=== PATIENT | male | born 1990 | race Caucasian/White ===

== ENCOUNTER 2023-09-11 14:13 | Emergency (ER) | payer OTHER, SELFPAY ==
[2023-09-11 14:19] VITALS: BP 145/90; PULSE 90; RESP 18; TEMP 37; O2SAT 96; BMI 23.2
[2023-09-11 14:23] VITALS: RESP 18; O2SAT 96
--- NOTE | 2023-09-11 14:57 | XR_ITS ---
[address] [address] Patient Name: CATRACHITA SULTANA MRN: [facility]:[id number] date: 1990 Sex: M Assigned Patient Location: ER Current Patient Location: ER Accession/Order Number: [id number] Exam Date: 09/11/2023 13:05 Report Date: 09/11/2023 15:20 At the request of: HELENA NEGRON Procedure: XR chest 1V EXAMINATION: XR chest 1V HISTORY: Shortness of breath COMPARISON: Chest x-ray 01/26/2023 TECHNIQUE: Portable chest FINDINGS: The lung parenchyma is free of consolidation or infiltrate. No pneumothorax or pleural effusion. The cardiac, mediastinal and hilar contours are normal. The visualized osseous structures exhibit no gross abnormality. XR/XR chest 1V IMPRESSION: No acute cardiopulmonary abnormality. Electronically authenticated by: DEVON BAIG Date: 09/11/2023 15:20
[2023-09-11] MEDS: PREDNISONE 20 MG TABLET 40 MG PO (15:08)
[2023-09-11] MEDS: IPRATROPIUM/ALBUTEROL SULFATE 3 ML AMPUL.NEB IH (15:18)
[2023-09-11 15:19] VITALS: O2SAT 100
--- NOTE | 2023-09-11 15:36 | ED_ITS ---
HPI - General Adult General Chief complaint: Upper Respiratory Infection Stated complaint: URTI Time Seen by Provider: 09/11/23 14:54 Source: patient Mode of arrival: walk-in Limitations: no limitations History of Present Illness HPI narrative: Patient have history of smoking more than 1 pack of cigarettes a day is coming to us with difficulty breathing associated with cough and wheezing for the last few days The patient have no chest pain no other complaints no fever no chills Related Data Previous Rx's Medication Instructions Recorded albuterol sulfate 90 mcg/actuation 2 inh inhalation Q6H PRN shortness 09/11/23 breath activated powder inhaler of breath or wheezing #1 ea azithromycin 250 mg tablet See Rx Instructions PO .COMPLEX #6 09/11/23 (Zithromax Z-Eleno) tabs prednisone 20 mg tablet 40 mg PO DAILY 5 days #10 tabs 09/11/23 Allergies Allergy/AdvReac Type Severity Reaction Status Date / Time Penicillins Allergy Intermediate Verified 09/11/23 14:22 Review of Systems ROS Status of ROS 10 or more systems reviewed and unremarkable except as noted in history and below [facility] Social History Smoking status: Current every day smoker Exam Narrative Exam Narrative: Nurses notes and vital signs reviewed and patient is not hypoxic. General: Well-appearing and in no apparent distress. Skin: Warm, dry, no pallor noted. No rash. Head: Normocephalic, atraumatic. Neck: Supple, non-tender. Eye: Pupils are equal, round and EOMI. No scleral icterus. Ears, Nose, Mouth, and Throat: TM are clear, no nasal mucosal hypertrophy. Oral mucosa is moist, no posterior oropharynx erythema, uvula is mid-line Cardiovascular: Regular Rate and Rhythm without murmur, gallop or rub. Respiratory: No accessory muscle use or respiratory distress. Lungs bilateral expiratory lung wheezes in both lung sullivan Chest Wall: no tenderness Back: No midline thoracic or lumbar vertebral tenderness. No CVA tenderness Musculoskeletal: normal ROM, no calf or popliteal tenderness, no lower ext remity edema/swelling GI: Abdomen is soft, non-distended. Normal bowel sounds. No masses appreciated. No tenderness to palpation. No rebound, guarding, or rigidity noted. Neurological: A&O x4. No cranial nerve dysfunction observed. No truncal ataxia. Moves all extremities. Sensation intact. Psychiatric: Cooperative and interactive. Normal mood and affect. Constitutional Vital Signs, click to edit/add: Last Vital Signs Temp 98.6 F 09/11/23 14:19 Pulse 90 09/11/23 14:19 Resp 18 09/11/23 14:23 BP 145/90 H 09/11/23 14:19 Pulse Ox 100 09/11/23 15:19 O2 Del Method Room Air 09/11/23 15:19 Course Vital Signs Vital signs: Vital Signs Temperature 98.6 F 09/11/23 14:19 Pulse Rate 90 09/11/23 14:19 Respiratory Rate 18 09/11/23 14:19 Blood Pressure 145/90 H 09/11/23 14:19 Pulse Oximetry 96 09/11/23 14:19 Oxygen Delivery Method Room Air 09/11/23 14:19 Temperature 98.6 F 09/11/23 14:19 Pulse Rate 90 09/11/23 14:19 Respiratory Rate 18 09/11/23 14:23 Blood Pressure 145/90 H 09/11/23 14:19 Pulse Oximetry 100 09/11/23 15:19 Oxygen Delivery Method Room Air 09/11/23 15:19 Medical Decision Making MDM Narrative Medical decision making narrative: The patient have history of bronchitis presenting to us with a COPD exacerbation he received a breathing treatment as well as prednisone after which she was feeling better and his chest x-ray showed no acute pathology He was just discharged home with prednisone as well as Z-Eleno and albuterol with follow-up with a new primary care The patient is to follow up with primary care physician in next 2-3 days or to return to the emergency department should any of the signs or symptoms worsen or new symptoms develop. The patient agrees with the following Diagnosis and Treatment plan and the patient will be discharged home. Discharge Plan Discharge Chief Complaint: Upper Respiratory Infection Clinical Impression: COPD exacerbation Patient Disposition: Home, Self-Care Time of Disposition Decision: 15:37 Condition: Good Mode of Transportation: Private Vehicle Prescriptions / Home Meds: New prednisone 20 mg tablet 40 mg PO DAILY 5 Days Qty: 10 0RF albuterol sulfate 90 mcg/actuation aerosol powdr breath activated 2 inh inhalation Q6H PRN (Reason: shortness of breath or wheezing) Qty: 1 0RF azithromycin [Zithromax Z-Eleno] 250 mg tablet See Rx Instructions .ROUTE .COMPLEX Qty: 6 0RF Rx Instructions: For 250 mg dose pack: take 500 mg today (day 1), then 250 mg for 4 days (days 2-5) Instructions: COPD (Chronic Obstructive Pulmonary Disease) (ED) Stand Alone Forms: Portal Instructions Referrals: Physician,Non-Staff, MD [Primary Care Provider] - 1 week
[2023-09-11 15:50] VITALS: BP 161/95; PULSE 82; RESP 17; O2SAT 98
== END 2023-09-11 15:55 | disposition home or self-care (01) ==
PROVIDERS: Emergency Provider Emergency Medicine
DX: J44.1 Chronic obstructive pulmonary disease with (acute) exacerbation (principal); F17.210 Nicotine dependence, cigarettes, uncomplicated
CPT/HCPCS: 71045; 94640; 99284

== ENCOUNTER 2025-06-23 21:06 | Emergency (ER) | payer OTHER, SELFPAY ==
--- OUTSIDE RECORDS SUMMARY | 2025-06-23 21:13 | XMS_ITS | CCD ---
Author Organization [facility] Care Team Providers Care [employer] Hand Name Role Phone Vore, Grabiel W Unavailable Unavailable No Doctor Assigned, Nodr Unavailable Unavail able Vore, Grabiel W Unavailable Unavailable Vore, Grabiel W Unavailable Unavailable No Doctor Assigned, Nodr Unavailable Unavail able Vore, Grabiel W Unavailable Unavailable ACSO Unavailable Unavailable Vore, Grabiel W Unavailable Unavailable No Doctor Assigned, Nodr Unavailable Unavail able Vore, Grabiel W Unavailable Unavailable ACSO Unavailable Unavailable NO FAMILY, PHYSICIAN Primary Care Provider Unava ilable DO Moreno Orellana Emergency Provider [place], [facility]- Dasia Misael Emergency Provider 1( [phone] MARKER ., [address] HOOD Admitting Unavailable MARKER ., DR HOOD Attending Unavailable REQUEST, NONE LISTED Primary Care Unavaila ble MARKER ., DR HOOD Consulting Unavailable DIEUDONNE WAKEFIELD Consulting Unavailable REQUEST, NONE LISTED Primary Care Unavaila ble HAY ., DR COLBERT Admitting Unavailable HAY ., DR COLBERT Attending Unavailable GRECHNY ., LASHONDA ADDISON Consulting Unavailabl e OSKAR DUTTA Consulting Unavailable Darryn Cristobal Admitting Unavailable NO FAMILY, PHYSICIAN Primary Care Unavailable Darryn Cristobal Attending Unavailable NO FAMILY, PHYSICIAN Primary Care Unavailable Moreno Orellana Attending Unavailable Moreno Orellana Admitting Unavailable NO FAMILY, PHYSICIAN Primary Care Unavailable [place] Dasia Misael Attending Unavailable Bullabelardo, Dasia E Admitting Unavailable Allergies Allergy Classification Reported Allergen(s) Allergy Type Date of Onset Reaction(s) Facility (5 sources) Penicillins; Translations: [penicillins] Propensity to adverse reactions to drug (disorder) 5 Anaphylaxis [facility] Repository (1 source) Penicillin; Translations: [penicillin] Drug Allergy [facility] Repository Problems Active Problems Problem Classification Problem Date Documented Da te Episodic/Chronic E Codes: Struck by; against (1 source) Striking against or struck by other objects, initial encounter; Translations: [STRIKING AGNST/STRUCK OTH OBJ INIT] Onset: 01-19-2023 Episodic Other connective tissue disease (3 sources) Pain in right hand; Translations: [PAIN IN RIGHT HAND] Onset: 01-18-2023 Episodic Other non-traumatic joint disorders (2 sources) Shoulder pain; Translations: [Pain in unspecified shoulder] 10-26-2022 Episodic Other upper respiratory infections (2 sources) Acute upper respiratory infection, unspecified; Translations: [ACUTE UP RESPIRATORY INFECTION UNS] Onset: 01-23-2023 Episodic Substance-related disorders (1 source) Nicotine dependence, cigarettes, uncomplicated; Translations: [NICOTINE DEPEND CIGARETTES UNCOMP] Onset: 01-29-2023 Chronic Superficial injury; contusion (1 source) Contusion of right hand, initial encounter; Translations: [CONTUSION RIGHT HAND INITIAL ENC] Onset: 01-19-2023 Episodic Unclassified (3 sources) COUGH, UNSPECIFIED; Translations: [COUGH, UNSPECIFIED] Onset: 01-29-2023 Unclassified (1 source) Fever, unspecified; Translations: [Fever, unspecified] Onset: 11-19-2022 Unclassified (1 source) Pain in right shoulder; Translations: [Pain in right shoulder] Onset: 10-26-2022 Past or Other Problems Problem Classification Problem Date Documented Da te Episodic/Chronic Unclassified (1 source) COUGH, UNSPECIFIED; Translations: [COUGH, UNSPECIFIED] Onset: 01-26-2023 Results Test Name Value Interpretation Reference Range Facil earl Fdc Documentson 01-12-2024 Fdc Documents [id number] [id number] Normal [facility] XR CHEST 1 Von 01-26-2023 XR CHEST 1 V EXAM: XR CHEST 1 V HISTORY: COUGH COMPARISON: None. TECHNIQUE: Single view of the chest FINDINGS: Heart size normal. No focal consolidation, pleural effusion, pulmonary congestion or pneumothorax. IMPRESSION: No acute findings. Electronically authenticated by: OSKAR DUTTA Date: 2023-01-26 17:56 Normal [facility] XR HAND RT MIN 3Von 01-18-20 23 XR HAND RT MIN 3V EXAM: XR HAND RT MIN 3V HISTORY: Pain in right hand COMPARISON: None. FINDINGS: 4 views of the right hand. There is no acute fracture or dislocation. The joint spaces are well-maintained. There is a well-corticated osseous irregularity along the radial margin of the long finger proximal phalanx. This may be the result of prior trauma. There is no soft tissue abnormality. IMPRESSION: No acute osseous abnormality. Consider follow-up radiographs in 7-10 days to assess for an occult fracture if clinically indicated. Electronically authenticated by: DIEUDONNE WAKEFIELD Date: 2023-01-18 21:26 Normal [facility] COVID-19 / Flu A/B / RSV PCR on 11-19-2022 SARS-CoV-2 (COVID-19) RNA SALLY+probe Ql (Unsp spec) COVID-19 Cepheid Result Negative for SARS-CoV-2 RNA by RT-PCR Flu A Cepheid Result Positive for Flu A RNA by RT-PCR Flu B Cepheid Result Negative for Flu B RNA by RT-PCR RSV Cepheid Result Negative for RSV RNA by RT-PCR COVID19 Blank Space Reference: Negative COVID19 Blank Space Cepheid Disclaimer The Cepheid Xpert Xpress CoV-2/Flu/RSV Plus has Cepheid Disclaimer not been FDA cleared or approved; this test has Cepheid Disclaimer been authorized by FDA under an EUA for use by Cepheid Disclaimer authorized laboratories; this test has been Cepheid Disclaimer authorized only for the simultaneous qualitative Cepheid Disclaimer detection and differentiation of nucleic acids from Cepheid Disclaimer SARS-CoV-2, influenza A, influenza B, and Cepheid Disclaimer respiratory syncytial virus (RSV), and not for any Cepheid Disclaimer other viruses or pathogens; and this test is only Cepheid Disclaimer authorized for the duration of the declaration that Cepheid Disclaimer circumstances exist justifying the authorization of Cepheid Disclaimer emergency use of in vitro diagnostic tests for Cepheid Disclaimer detection and/or diagnosis of COVID-19 under Cepheid Disclaimer Section 564(b)(1) of the Act, 21 U.S.C. 360bbb- Cepheid Disclaimer 3(b)(1), unless the authorization is terminated or Cepheid Disclaimer revoked sooner. PERFORMED BY: [place] [id number] PATHOLOGIST SYSTEMS AUDITOR FLAQUITO ALVAREZ M.D. Normal [facility] Comment on above: Performed By: #### C OVID19 FLU RSV, CEPHEID NEG #### [address] Cepheid COVID PCR Negativeon 11-19-2022 SARS-CoV-2 (COVID-19) RNA SALLY+probe Ql (Unsp spec) Negative Normal Negative [facility] Comment on above: Result Comment: This is a duplicate Cepheid Xpert Xpress CoV-2/Flu/RSV Plus RNA by RT-PCR result to be used for statistical tracking purpose only. PERFORMED BY: [place] [address] PATHOLOGIST SYSTEMS AUDITOR FLAQUITO ALVAREZ M.D. Performed By: #### C OVID19 FLU RSV, CEPHEID NEG #### [place] [id number] [facility] XR shoulder RT min 2V*on XR shoulder RT min 2V* [facility] [place] [address] XRay Report Signed Patient: Harvey Sultana MR#: [id number] : 1990 Acct:[id number] Age/Sex: 32 / M ADM Date: 10/25/22 Loc: ER Room: Type: DEP ER Attending Dr: Copies to: Moreno Orellana DO Ordering Provider: Moreon Orellana DO Date of Service: 10/26/22 XR/XR shoulder RT min 2V*: Extremity Injury, Upper RIGHT SHOULDER - - 3 views CLINICAL HISTORY: Right posterior shoulder pain for years. COMPARISON: None FINDINGS: No acute bony process or significant degenerative change. XR/XR shoulder RT min 2V* IMPRESSION: No acute bony process. Impression dictated by: Marcelo Raymond Jr., D.OGrecia10/26/2022 9:10 AM Dictation Location: [place] [address] Transcribed By: [facility] 10/26/22909 Dictated By: Marcelo Raymond Jr, DO 10/26/22909 Signed By: 10/26/22909 [facility] [place] 07-17-2017 INR Coag RelTime (Bld) Final Report: Rare Methicillin-Resistant Staphylococcus aureusORGANISM: MRSAGram Stain Report: Rare Gram Positive CocciSUSCEPTIBILITY RESULTSAntibiotic DAVID Dilutn DAVID InterpORGANISM: MRSAAmox/Cla : >4/2 R*Amp : >8 R*Amp/Sul : 16/8 R*Ceftri : >32 R*Cipro : <=1 SClinda : <=0.5 SEryth : >4 RGent : <=4 SICd : <=4/0.5 NegLevo : <=1 SLine : 2 SOx : >2 RPen : >8 R*Rif : <=1 STetra : <=4 SSXT : <=0.5/9.5 SVanc : 1 S Normal [facility] Comment on above: Performed By: #### 2 [id number] ####[place] [address] Lamotrigine Lvlon 06-07-2017 Lamotrigine Lvl 4.0 microgram/mL Normal 2.0-20.0 [facility] Comment on above: Result Comment: Dete ction Limit = 1.0Performed At: [facility] [address] [id number] Miller MD Ph:[phone] Performed By: #### 1 [id number] ####DEB Send Outs [id number] [place] [address] Lamotrigine Lvlon 05-31-2017 Lamotrigine Lvl 3.4 microgram/mL Normal 2.0-20.0 [facility] Comment on above: Result Comment: Dete ction Limit = 1.0Performed At: BN [facility] [address] [id number] Miller MD Ph:[phone] Performed By: #### 1 [id number] ####DEB Send Outs [id number] [place] [address] Vital Signs Date Time Vital Sign Value Performing Clinician Facility 11-19-2022 16:15-0500 Body height 177.8 cm PHYSICIAN NO [facility] 11-19-2022 16:15-0500 Body temperature 100.4 [degF] PHYSICIAN NO [facility] 11-19-2022 16:15-0500 Body weight 72.55 kg PHYSICIAN NO [facility] 11-19-2022 16:15-0500 Diastolic blood pressure 91 mm[Hg] PHYSICIAN NO [facility] 11-19-2022 16:15-0500 Heart rate 106 /min PHYSICIAN NO [facility] 11-19-2022 16:15-0500 Respiratory rate 18 /min PHYSICIAN NO [facility] 11-19-2022 16:15-0500 SaO2% (BldA) [Mass fraction] 97 % PHYSICIAN NO [facility] 11-19-2022 16:15-0500 Systolic blood pressure 133 mm[Hg] PHYSICIAN NO [facility] 10-26-2022 01:03-0500 Diastolic blood pressure 78 mm[Hg] PHYSICIAN NO [facility] 10-26-2022 01:03-0500 Heart rate 86 /min PHYSICIAN NO [facility] 10-26-2022 01:03-0500 Respiratory rate 18 /min PHYSICIAN NO [facility] 10-26-2022 01:03-0500 SaO2% (BldA) [Mass fraction] 98 % PHYSICIAN NO [facility] 10-26-2022 01:03-0500 Systolic blood pressure 122 mm[Hg] PHYSICIAN NO [facility] 10-25-2022 23:54-0500 Body height 177.8 cm PHYSICIAN NO [facility] 10-25-2022 23:54-0500 Body temperature 98.2 [degF] PHYSICIAN NO [facility] 10-25-2022 23:54-0500 Body weight 76.25 kg PHYSICIAN NO [facility] Encounters Encounter Date Encounter Type Care Provider Facility Start: 12-08-2023 ambulatory Facility:Kaela Mcintosh Start: 01-26-2023 End: 01-26-[address] NONE LISTED REQUEST Facility: Start: 01-23-2023 End: 01-24-2023 Emergency department patient visit Darryn Cristobal Facility:[facility] Start: 01-18-2023 End: 01-18-[address] SANA PATRICK . Facility: Start: 11-19-2022 End: 11-19-2022 Emergency department patient visit PHYSICIAN NO [facility] Facility:[facility] Start: 11-19-2022 End: 11-19-2022 Emergency department patient visit PHYSICIAN NO [facility] Work Phone: Start: 10-26-2022 End: 10-26-2022 Emergency department patient visit PHYSICIAN NO [facility] Facility:[facility] Start: 10-25-2022 End: 10-26-2022 Emergency department patient visit PHYSICIAN NO [facility] Start: 07-14-2017 End: 07-15-2017 Ambulatory Grabiel Monae Facility:[facility] Start: 06-06-2017 End: 06-07-2017 Ambulatory Grabiel Monae Facility:[facility] Start: 05-27-2017 End: 05-28-2017 [facility] Procedures Date Procedure Procedure Detail Performing Clinician Start: 10-26-2022 Plain X-ray of right shoulder PHYSICIAN KALYANI DEAL Plan of Treatment Date Care Activity Detail Author Start: 11-19-2022 [facility] Start: 11-19-2022 SARS-CoV-2, Influenz a & RSV (PCR) SARS-CoV-2, Influenza & RSV (PCR) [facility] Start: 10-26-2022 Plain X-ray of right shoulder XR shoulder RT min 2V* [facility] Start: 10-26-2022 XR Shoulder - right Views [facility] Patient Education Shoulder Pain ED [facility] Work Phone: Patient referral [facility] Work Phone: Payers Date Payer Category Payer Medicaid [id number] 2018 Self-pay 2017 Unknown 1990 Unknown [id number] [id number] [id number] 1990 Unknown [id number] 2.16.84 [id number] 1990 Unknown [id number] 2.16.8 [id number] 1959 Unknown [id number] Unknown [id number] 2.16.8 [id number] Unknown [id number] 2.16.8 [id number] Unknown [id number] 2.16.8 [id number] Social History Date Type Detail Facility Start: 10-26-2022 End: 11-19-2022 Tobacco smoking status NHIS Smoker (finding) [facility] Start: 1990 Sex Assigned At Male F [facility] Evaluation note Note Date & Type Note Facility Evaluation note No assessment information availa ble [facility] Work Phone: Hospital Discharge instructions Note Date & Type Note Facility Hospital Discharge instructions Additional Instructions Follow up with orthopedic doctor provided Return to the ED if you develop worsening symptoms or concerns [facility] Work Phone: Summary Purpose Family History No Family History Records FoundNo Family History Records FoundNo Family History Records FoundNo Family History Records Found Advance Directives No Advanced Directives Records Found Advance Directive Response Recorded Date/ Time Advance Directives No October 26, 2022 12:12am Chief Complaint and Reason for Visit Chief Complaint right shoulder pain Chief Complaint right shoulder pain unable to eat, fever Additional Source Comments (unrecognized sect ion and content) No Status Records FoundNo Status Records FoundNo Status Records FoundNo Status Records Found INFORMATION SOURCE (unrecogn ized section and content) DATE CREATED AUTHOR 05/17/2018 [facility] DATE CREATED AUTHOR AUTHOR'S ORGANIZ ATION 01/29/2023 [facility] DATE CREATED AUTHOR AUTHOR'S ORGANIZ ATION 02/03/2023 [facility] DATE CREATED AUTHOR AUTHOR'S ORGANIZ ATION 01/20/2024 [facility] Care Teams (unrecognized sec tion and content) Team Status: Inactive Member Role Status Dates PHYSICIAN NO FAMILY Primary Care Provider Active Moreno Orellana DO Emergency Provider Active Team Status: Active Member Role Status Dates PHYSICIAN NO FAMILY Primary Care Provider Active Team Status: Inactive Member Role Status Dates PHYSICIAN NO FAMILY Primary Care Provider Active Dasia De La Vega , HIV COUNSELOR- Emergency Provider Active Goals (unrecognized section and content) Goals may be documented in a n alternate sectionGoals may be documented in an alternate section FOR RECORDS PERTAINING TO PATIENTS WHO ARE OR HAVE BEEN ENROLLED IN A CHEMICAL DEPENDENCY/SUBSTANCEABUSE PROGRAM, SOME INFORMATION MAY BE OMITTED. This clinical summary was aggregated from multiple sources. Caution should be exercised in using it in the provision of clinical care. This summary normalizes information from multiple sources, and as a consequence, information in this document may materially change the coding, format and clinical context of patient data. In addition, data may be omitted in some cases. CLINICAL DECISIONS SHOULD BE BASED ON THE PRIMARY CLINICAL RECORDS. [facility] [employer] [facility]. provides no warranty or guarantee of the accuracy or completeness of information in this document.
[2025-06-23 21:17] VITALS: BP 127/84; PULSE 66; TEMP 36.8; O2SAT 97; BMI 24.4
--- NOTE | 2025-06-23 21:35 | ED.GENADUL1 ---
HPI HPI - General Adult General Chief complaint: Nausea/Vomiting/Diarrhea Stated complaint: abd pain Time Seen by Provider: 06/23/25 21:18 Source: patient Mode of arrival: walk-in History of Present Illness HPI narrative: 35-year-old male presents for nausea. He threw up a few times. It started a day or 2 ago. He has not vomited blood and he has had no blood in his stools. When he was young he was treated for ulcers. Related Data Previous Rx's ?Medication ?Instructions ?Recorded albuterol sulfate 90 mcg/actuation 2 inh inhalation Q6H PRN shortness 09/11/23 breath activated powder inhaler of breath or wheezing #1 ea azithromycin 250 mg tablet See Rx Instructions PO .COMPLEX #6 09/11/23 (Zithromax Z-Eleno) tabs prednisone 20 mg tablet 40 mg (2 x 20 mg) PO DAILY 5 days 09/11/23 #10 tabs ondansetron 4 mg disintegrating 4 mg PO Q6H PRN nausea and 06/23/25 tablet vomiting #20 tabs Allergies Allergy/AdvReac Type Severity Reaction Status Date / Time Penicillins Allergy Intermediate Anaphylaxis Verified 06/23/25 21:17 Review of Systems ROS Narrative A ten point review of systems is negative except as noted above. PFSH PFSH Social History Smoking status: Current every day smoker Little interest or pleasure in doing things: not at all Feeling down, depressed, or hopeless: not at all Exam Narrative Exam Narrative: Nurses note and vital signs reviewed and patient is not hypoxic. General: The patient appears well and in no apparent distress. Patient is resting comfortably on cart. Skin: Warm, dry, no pallor noted. There is no rash noted. Head: Normocephalic, atraumatic Eye: Normal conjunctiva, no drainage Ears, Nose, Mouth, and Throat: oral mucosa is moist. Nares patent. Cardiovascular: Regular Rate and Rhythm Respiratory: Patient is in no distress, no accessory muscle use, lungs are clear to auscultation, no wheezing, rales or rhonchi Back: non-tender GI: Soft and nontender, no masses Musculoskeletal: The patient has no evidence of calf tenderness, no pitting edema, symmetrical pulses noted bilaterally Neurological: A&O, normal speech Psychiatric: Cooperative Constitutional Vital Signs, click to edit/add: Last Vital Signs Temp 98.2 F 06/23/25 21:17 Pulse 66 06/23/25 21:17 Resp 20 06/23/25 21:17 BP 127/84 06/23/25 21:17 Pulse Ox 97 06/23/25 21:17 O2 Del Method Room Air 06/23/25 21:17 Course Vital Signs Vital signs: Vital Signs Temperature 98.2 F 06/23/25 21:17 Pulse Rate 66 06/23/25 21:17 Respiratory Rate 20 06/23/25 21:17 Blood Pressure 127/84 06/23/25 21:17 Pulse Oximetry 97 06/23/25 21:17 Oxygen Delivery Method Room Air 06/23/25 21:17 Temperature 98.2 F 06/23/25 21:17 Pulse Rate 66 06/23/25 21:17 Respiratory Rate 20 06/23/25 21:17 Blood Pressure 127/84 06/23/25 21:17 Pulse Oximetry 97 06/23/25 21:17 Oxygen Delivery Method Room Air 06/23/25 21:17 Medical Decision Making MDM Narrative Medical decision making narrative: His blood work is normal. He is feeling improved with IV fluids and IV Zofran and he is able to be discharged home. He was given a work note as well. Treatment diagnosis and follow-up were discussed with the patient. He was also given a list of PCPs. Differential Diagnosis Differential Diagnosis: Nausea and vomiting, dehydration Lab Data Labs: Lab Results 06/23/25 Range/Units 21:40 WBC 6.7 (4.0-11.0) 10^3/uL RBC 4.92 (4.70-6.10) 10^6/uL Hgb 15.1 (14.0-18.0) g/dL Hct 42.2 (42.0-54.0) % MCV 85.8 (80.0-94.0) fL MCH 30.7 (25.9-34.0) pg MCHC 35.8 H (29.9-35.2) g/dL RDW 12.0 (11.0-15.0) % Plt Count 227 (150-450) 10^3/uL MPV 10.0 (9.5-13.5) fL Neut % (Auto) 59.6 (43.0-75.0) % Lymph % (Auto) 29.8 (20.5-60.0) % [place] % (Auto) 8.8 (1.7-12.0) % Eos % (Auto) 1.2 (0.9-7.0) % Baso % (Auto) 0.3 (0.2-2.0) % Neut # (Auto) 4.0 (1.4-6.5) 10^3/uL Lymph # (Auto) 2.0 (1.2-3.8) 10^3/uL [place] # (Auto) 0.6 (0.3-0.8) 10^3/uL Eos # (Auto) 0.1 (0.0-0.7) 10^3/uL Baso # (Auto) 0.0 (0.0-0.1) 10^3/uL Abs Immat Gran (auto) 0.02 (0.00-0.03) 10^3/uL Imm/Tot Granulo (auto) 0.3 (0.0-0.5) % Sodium 140 (136-145) mmol/L Potassium 3.3 L (3.5-5.1) mmol/L Chloride 105 (98-107) mmol/L Carbon Dioxide 29.3 (21.0-32.0) mmol/L Anion Gap 9.0 BUN 11.0 (7.0-18.0) mg/dL Creatinine 1.00 (0.70-1.30) mg/dL Est GFR ( Amer) >60 (>=60 mL/min/1.73m^2) Est GFR (Non-Af Amer) >60 (>=60 mL/min/1.73m^2) BUN/Creatinine Ratio 11.0 Glucose 96 (74-106) mg/dL Calcium 8.6 (8.5-10.1) mg/dL Discharge Plan Discharge Chief Complaint: Nausea/Vomiting/Diarrhea Clinical Impression: Nausea and vomiting Patient Disposition: Home, Self-Care Time of Disposition Decision: 22:21 Condition: Good Mode of Transportation: Private Vehicle Prescriptions / Home Meds: New ondansetron 4 mg tablet,disintegrating 4 mg PO Q6H PRN (Reason: nausea and vomiting) Qty: 20 0RF No Action prednisone 20 mg tablet 40 mg PO DAILY 5 Days Qty: 10 0RF albuterol sulfate 90 mcg/actuation aerosol powdr breath activated 2 inh inhalation Q6H PRN (Reason: shortness of breath or wheezing) Qty: 1 0RF azithromycin [Zithromax Z-Eleno] 250 mg tablet See Rx Instructions .ROUTE .COMPLEX Qty: 6 0RF Rx Instructions: For 250 mg dose pack: take 500 mg today (day 1), then 250 mg for 4 days (days 2-5) Print Language: Norwegian Instructions: Acute Nausea and Vomiting (ED) Referrals: Physician,Non-Staff, MD [Primary Care Provider] - 1 week
[2025-06-23 21:54] LABS: Hematocrit 42.2 % (42.0-54.0); Hemoglobin 15.1 g/dL (14.0-18.0); Immature Granulocytes Abs Auto 0.02 10^3/uL (0.00-0.03); Immature Granulocytes Pct Auto 0.3 % (0.0-0.5); Lymphocytes Absolute Auto 2.0 10^3/uL (1.2-3.8); Mean Corpuscular HGB Conc 35.8 g/dL (29.9-35.2); Mean Corpuscular Hemoglobin 30.7 pg (25.9-34.0); Mean Corpuscular Volume 85.8 fL (80.0-94.0); Platelet Count 227 10^3/uL (150-450); Red Blood Count 4.92 10^6/uL (4.70-6.10); White Blood Count 6.7 10^3/uL (4.0-11.0)
[2025-06-23] MEDS: 0.9 % SODIUM CHLORIDE 1,000 ML 1000 ML IV (21:54)
[2025-06-23 22:04] LABS: Anion Gap 9.0; Blood Urea Nitrogen 11.0 mg/dL (7.0-18.0); Calcium 8.6 mg/dL (8.5-10.1); Carbon Dioxide 29.3 mmol/L (21.0-32.0); Chloride 105 mmol/L (98-107); Estimated GFR (African America >60 (>=60 mL/min/1.73m^2); Estimated GFR (Non-African Ame >60 (>=60 mL/min/1.73m^2); Glucose 96 mg/dL (74-106); Potassium 3.3 mmol/L (3.5-5.1); Sodium 140 mmol/L (136-145)
== END 2025-06-23 23:02 | disposition home or self-care (01) ==
PROVIDERS: Emergency Provider Emergency Medicine
DX: R11.2 Nausea with vomiting, unspecified (principal); F17.200 Nicotine dependence, unspecified, uncomplicated
CPT/HCPCS: 36415; 80048; 85025; 96361; 96374; 99284; J2405

== ENCOUNTER 2025-08-01 22:33 | Emergency (ER) | payer OTHER, SELFPAY ==
--- OUTSIDE RECORDS SUMMARY | 2025-08-01 22:40 | XMS_ITS | CCD ---
Author Organization [facility] Care Team Providers Care Public Address Announcer Name Role Phone Vore, Grabiel W Unavailable [...] Unava ilable DO Moreno Orellana Emergency Provider Bullabelardo, [facility] Dasia E Emergency Provider MARKER ., DR HOOD Admitting Unavailable MARKER ., DR HOOD Attending Unavailable REQUEST, DR MAYORGA LISTED Primary Care Unavaila ble MARKER ., DR HOOD Consulting Unavailable DIEUDONNE WAKEFIELD Consulting Unavailable REQUEST, DR MAYORGA LISTED Primary Care Unavaila ble HAY ., DR COLBERT Admitting Unavailable HAY ., DR COLBERT Attending Unavailable GRECHNY ., LASHONDA ADDISON Consulting Unavailabl e OSKAR DUTTA Consulting Unavailable Darryn Cristobal Admitting Unavailable NO FAMILY, PHYSICIAN Primary Care Unavailable Darryn Cristobal Attending Unavailable NO FAMILY, PHYSICIAN Primary Care Unavailable Moreno Orellana Attending Unavailable Moreno Orellana Admitting Unavailable NO FAMILY, PHYSICIAN Primary Care Unavailable Bullimore, Dasia E Attending Unavailable Bullimore, Dasia E Admitting Unavailable Unavailable Primary Care Provider Unavailabl e Allergies Allergy Classification Reported Allergen(s) Allergy Type Date of Onset Reaction(s) Facility (6 sources) Penicillins; Translations: [penicillins] Propensity to adverse reactions to drug (disorder) 5 Anaphylaxis [facility] Repository (1 source) Penicillin; Translations: [penicillin] Drug Allergy [facility] Repository Medications Current Medications Medication Drug Class(es) Dates Sig (Normalized) Sig (Original) ibuprofen 600 mg oral tablet (1 source) Nonsteroidal Anti-inflammatory Drug Start: 07-28-2025 take 1 tablet by mouth every six hours as needed for pain ibuprofen (ADVIL;MOTRIN) 600 MG tablet Take 1 tablet by mouth every 6 hours as needed for Pain 20 tablet 07/28/2025 Active Problems Active Problems Problem Classification Problem Date [...] UP RESPIRATORY INFECTION UNS] Onset: 01-23-2023 Episodic Sprains and strains (1 source) Shoulder strain; Translations: [Strain of unspecified muscle, fascia and tendon at shoulder and upper arm level, right arm, initial encounter] 07-28-2025 Episodic Substance-related disorders (1 source) Nicotine dependence, [...] Results Test Name Value Interpretation Reference Range Facility XR Shoulder - right 2 Viewso n 07-28-2025 No acute osseous finding. PN RIS CONSOLIDATED EXAM: XR SHOULDER RIGHT (MIN 2 VIEWS) HISTORY: injury COMPARISON: None. TECHNIQUE: 3 views of the right shoulder. FINDINGS: There is normal osseous alignment. No lytic bone lesion or acute fracture is seen. The included right lung is clear. [facility] Natasha Mcmahon MD - 07/28/2025 EXAM: XR SHOULDER RIGHT (MIN 2 VIEWS) HISTORY: injury COMPARISON: None. TECHNIQUE: 3 views of the right shoulder. FINDINGS: There is normal osseous alignment. No lytic bone lesion or acute fracture is seen. The included right lung is clear. IMPRESSION: No acute osseous finding. [facility] Radiology Study observation (narrative) [facility] XR Shoulder - right 2 ViewsO rdered By: Natasha Rome on 07-28-2025 [facility] [employer] Work Phone: [facility] Documentson 01-12-2024 [facility] [id number] Normal [facility] XR CHEST 1 Von 01-26-2023 XR CHEST 1 V EXAM: XR CHEST 1 V HISTORY: COUGH COMPARISON: None. TECHNIQUE: Single view of the chest FINDINGS: Heart size normal. No focal consolidation, pleural effusion, pulmonary congestion or pneumothorax. IMPRESSION: No acute findings. Electronically authenticated by: OSKAR DUTTA Date: 2023-01-26 17:56 Normal [facility] XR HAND RT MIN 3Von 01-18-20 [...] by: DIEUDONNE WAKEFIELD Date: 2023-01-18 21:26 Normal [facility] COVID-19 / Flu A/B / RSV [...] or Cepheid Disclaimer revoked sooner. PERFORMED BY: [facility] [place] [address] PATHOLOGIST TOY MAKER FLAQUITO ALVAREZ M.D. [facility] Comment on above: Performed By: #### C OVID19 FLU RSV, CEPHEID NEG #### [facility] [address] [place] [address] Cepheid COVID PCR Negativeon 11-19-2022 SARS-CoV-2 (COVID-19) RNA SALLY+probe Ql (Unsp spec) Negative Normal Negative [facility] Comment on above: Result Comment: This is a duplicate Cepheid Xpert Xpress CoV-2/Flu/RSV Plus RNA by RT-PCR result to be used for statistical tracking purpose only. PERFORMED BY: [place] [address] PATHOLOGIST TOY MAKER FLAQUITO ALVAREZ M.D. Performed By: #### C OVID19 FLU RSV, CEPHEID NEG #### [address] XR shoulder RT min 2V*on XR shoulder RT min 2V* [facility] [place] [address] [place] [address] XRay Report Signed Patient: Harvey Ham MR#: [id number] : 1990 Acct:[id number] Age/Sex: 32 / M ADM Date: 10/25/22 Loc: ER Room: Type: [facility] ER Attending Dr: Copies to: Moreno Orellana DO Ordering Provider: Moreno Orellana DO Date of Service: 10/26/22 XR/XR shoulder RT min 2V*: Extremity Injury, Upper RIGHT SHOULDER - - 3 views CLINICAL HISTORY: Right posterior shoulder pain for years. COMPARISON: None FINDINGS: No acute bony process or significant degenerative change. XR/XR shoulder RT min 2V* IMPRESSION: No acute bony process. Impression dictated by: Marcelo Raymond Jr., D.O.10/26/2022 9:10 AM Dictation Location: [place] [address] Transcribed By: [facility] 10/26/22909 Dictated By: Marcelo Raymond Jr, DO 10/26/22909 Signed By: 10/26/2210 [facility] C [place] 07-17-2017 INR Coag RelTime (Bld) Final Report: Rare Methicillin-Resistant Staphylococcus aureusORGANISM: MRSAGram Stain Report: Rare Gram Positive CocciSUSCEPTIBILIT Y RESULTSAntibiotic DAVID Dilutn DAVID InterpORGANISM: MRSAAmox/Cla : >4/2 R*Amp : >8 R*Amp/Sul : 16/8 R*Ceftri : >32 R*Cipro : <=1 SClinda : <=0.5 SEryth : >4 RGent : <=4 SICd : <=4/0.5 NegLevo : <=1 SLine : 2 SOx : >2 RPen : >8 R*Rif : <=1 STetra : <=4 SSXT : <=0.5/9.5 SVanc : 1 S Normal [facility] Comment on above: Performed By: #### [id number] ####DE[facility] [id number] [place] [address] Lamotrigine Lvlon 06-07-2017 Lamotrigine Lvl 4.0 microgram/mL Normal 2.0-20.0 [facility] Comment on above: Result Comment: Dete ction Limit = 1.0Performed At: [facility] [id number] Miller MD Ph:[phone] Performed By: #### 1 [id number] ####DEB Send Outs [address] [place] [id number] Lamotrigine Lvlon 05-31-2017 Lamotrigine Lvl 3.4 microgram/mL Normal 2.0-20.0 [facility] Comment on above: Result Comment: Dete ction Limit = 1.0Performed At: [facility] [address] [id number] Miller MD Ph:[phone] Performed By: #### 1 [id number] ####DEB Send Outs [address] [place] [address] Vital Signs Date Time Vital Sign Value Performing Clinician Facility 07-28-2025 22:27-0400 Diastolic blood pressure 94 mm[Hg] Dieudonne Betts MD Work Phone: [facility] 07-28-2025 22:27-0400 SaO2% (BldA) [Mass fraction] 96 % Dieudonne Betts MD Work Phone: [employer] 07-28-2025 22:27-0400 Systolic blood pressure 138 mm[Hg] Dieudonne Betts MD Work Phone: [employer] 07-28-2025 20:49-0400 Body height 177.8 cm Dieudonne Betts MD Work Phone: [employer] 07-28-2025 20:49-0400 Body mass index (BMI) [Ratio] 24.68 kg/m2 Dieudonne Betts MD Work Phone: [employer] 07-28-2025 20:49-0400 Body temperature 97.9 [degF] Dieudonne Betts MD Work Phone: [employer] 07-28-2025 20:49-0400 Body weight 78.02 kg Dieudonne Betts MD Work Phone: [employer] 07-28-2025 20:49-0400 Heart rate 78 /min Dieudonne Betts MD [facility] 07-28-2025 20:49-0400 Respiratory rate 18 /min Dieudonne Betts MD Work [email or web address] 11-19-2022 16:15-0500 Body height 177.8 cm PHYSICIAN NO [facility] 11-19-2022 16:15-0500 Body temperature 100.4 [degF] PHYSICIAN NO [facility] 11-19-2022 16:15-0500 Body weight 72.55 kg PHYSICIAN NO [facility] 11-19-2022 16:15-0500 Diastolic blood pressure 91 mm[Hg] PHYSICIAN NO [facility] 11-19-2022 16:15-0500 Heart rate 106 /min PHYSICIAN NO [facility] 11-19-2022 16:15-0500 Respiratory rate 18 /min PHYSICIAN NO [facility] 11-19-2022 16:15-0500 SaO2% (BldA) [Mass fraction] 97 % PHYSICIAN NO [facility] 11-19-2022 16:15-0500 Systolic blood pressure 133 mm[Hg] PHYSICIAN NO [facility] 10-26-2022 01:03-0500 Diastolic blood pressure 78 mm[Hg] PHYSICIAN NO [facility] 10-26-2022 01:03-0500 Heart rate 86 /min PHYSICIAN NO [facility] 10-26-2022 01:03-0500 Respiratory rate 18 /min PHYSICIAN NO [facility] 10-26-2022 01:03-0500 SaO2% (BldA) [Mass fraction] 98 % PHYSICIAN NO [facility] 10-26-2022 01:03-0500 Systolic blood pressure 122 mm[Hg] PHYSICIAN NO [facility] 10-25-2022 23:54-0500 Body height 177.8 cm PHYSICIAN NO [facility] 10-25-2022 23:54-0500 Body temperature 98.2 [degF] PHYSICIAN NO [facility] 10-25-2022 23:54-0500 Body weight 76.25 kg PHYSICIAN NO [facility] Encounters Encounter Date Encounter Type Care Provider Facility Start: 07-28-2025 End: 07-28-2025 Emergency department patient visit Dieudonne Betts MD Work Phone: [facility] Emergency Department Comment on above: Strain of right shou lder, initial encounter (Primary Dx) Start: 12-08-2023 ambulatory Facility:Kaela Mcintosh Start: 01-26-2023 End: 01-26-[address] NONE LISTED REQUEST Facility:[facility] Start: 01-23-2023 End: 01-24-2023 Emergency department patient visit Darryn Cristobal Facility:[facility] Start: 01-18-2023 End: 01-18-[address] SANA PATRICK . Facility:[facility] Start: 11-19-2022 End: 11-19-2022 Emergency department patient visit PHYSICIAN NO [facility] Facility:[facility] Start: 11-19-2022 End: 11-19-2022 Emergency department patient visit PHYSICIAN NO [facility] Work Phone: Start: 10-26-2022 End: 10-26-2022 Emergency department patient visit PHYSICIAN NO FAMILY Facility:[facility] Start: 10-25-2022 End: 10-26-2022 Emergency department patient visit PHYSICIAN NO FAMILY [facility] Start: 07-14-2017 End: 07-15-2017 Ambulatory [facility] Facility:[facility] Start: 06-06-2017 End: 06-07-2017 Ambulatory [facility] Facility:[facility] Start: 05-27-2017 End: 05-28-2017 Ambulatory [facility] Facility:[facility] Procedures Date Procedure Procedure Detail Performing Clinician Start: 07-28-2025 Radex shoulder compl ete minimum 2 views Dieudonne Betts MD Work Phone: Start: 10-26-2022 Plain X-ray of right shoulder PHYSICIAN NO FAMILY Plan of Treatment Date Care Activity Detail Author Start: 11-19-2022 [facility] Start: 11-19-2022 SARS-CoV-2, Influenz a & RSV (PCR) SARS-CoV-2, Influenza & RSV (PCR) [facility] Start: 10-26-2022 Plain X-ray of right shoulder XR shoulder RT min 2V* [facility] Start: 10-26-2022 XR Shoulder - right Views [facility] Patient Education Shoulder Pain ED [facility] Work Phone: Patient referral [facility] Work Phone: Payers Date Payer Category Payer Medicaid [id number] 2018 Self-pay 2017 Unknown 1990 Unknown [id number] 1990 Unknown [id number] [id number] 1990 Unknown [id number] 2.16.8 [id number] 1959 Unknown [id number] Unknown [id number] 2.16.8 [id number] Unknown [id number] 2.16.8 [id number] Unknown [id number] 2.16.8 [id number] Social History Date Type Detail Facility Start: 10-26-2022 End: 11-19-2022 Tobacco smoking status NHIS Smoker (finding) [facility] Start: 1990 Sex Assigned At Male F [facility] Start: 07-28-2025 Tobacco smoking stat [facility] Never smoked tobacco [employer] Start: 07-28-2025 Tobacco use and exposure Smokeless tobacco non-user [employer] Start: 07-28-2025 Alcoholic beverage intake Lifetime non-drinker (finding) [employer] Start: 07-28-2025 History of Social function [employer] Start: 07-28-2025 Tobacco use panel [facility] Dormzy How often to you hav e a drink containing alcohol? Never [employer] How many standard drinks containing alcohol do you have on a typical day? Patient does not drink [employer] Start: 1990 Sex assigned at Not on file B on [employer] Start: 07-28-2025 Sex Male (finding) [facility] [employer] Functional Status Date Assessment Result Facility [facility] [employer] [facility] [employer] Evaluation note Note Date & Type Note Facility Evaluation note No assessment information availa ble [facility] Work Phone: Evaluation note Note Date & Type Note Facility Evaluation note Diagnosis Strain of right shoulder, initial encounter- Primary [email or web address] Discharge instructions Note Date & Type Note Facility Hospital Discharge instructions Additional Instructions Follow up with orthopedic doctor provided Return to the ED if you develop worsening symptoms or concerns [facility] Work Phone: Hospital Discharge instructions Attachments Note Date & Type Note Facility Hospital Discharge instructions The following attachments cannot be sent through Care Everywhere.Shoulder Sprain (Mauritanian)documented in this encounter [facility] Summary Purpose Family History No Family History Records FoundNo Family History Records FoundNo Family History Records FoundNo Family History Records Found Advance Directives Advance Directive Response Recorded Date/ Time Advance [...] section and content) DATE CREATED AUTHOR 05/17/2018 [facility] DATE CREATED AUTHOR AUTHOR'S ORGANIZ ATION 01/29/2023 [facility] DATE CREATED AUTHOR AUTHOR'S ORGANIZ ATION 02/03/2023 [facility] DATE CREATED AUTHOR AUTHOR'S ORGANIZ ATION 01/20/2024 [facility] Care Teams (unrecognized sec tion and content) Team Status: Inactive Member Role Status Dates PHYSICIAN NO FAMILY Primary Care Provider Active Moreno Orellana DO Emergency Provider Active Team Status: Active Member Role Status Dates PHYSICIAN NO FAMILY Primary Care Provider Active Team Status: Inactive Member Role Status Dates PHYSICIAN NO FAMILY Primary Care Provider Active JANIS Brice-JOJO Emergency Provider Active Goals (unrecognized section and content) Goals may be documented in a n alternate sectionGoals may be documented in an alternate section Reason for Visit (unrecogniz ed section and content) Reason Comments Shoulder Injury Rolling around playi ng outside yesterday. Woke up this morning with right shoulder hurting. Patient states it is popping more than normal and painful to lift. Ordered Prescriptions (unrec ognized section and content) Prescription Sig Dispense Quantity Refills Last Filled Start Date End Date ibuprofen (ADVIL;MOTRIN) 600 MG tablet Take 1 tablet by mouth every 6 hours as needed for Pain 20 tablet 07/28/2025 FOR RECORDS PERTAINING TO PATIENTS WHO ARE [...] BE BASED ON THE PRIMARY CLINICAL RECORDS. [facility] [employer] [facility]. provides no warranty or guarantee of the accuracy or completeness of information in this document.
[2025-08-01 22:42] VITALS: BP 131/91; PULSE 64; TEMP 36.6; O2SAT 97; BMI 22.2
--- NOTE | 2025-08-01 22:55 | ED.GENADUL1 ---
HPI HPI - General Adult General Chief complaint: Upper Respiratory Infection Stated complaint: SWEATS, SORE THROAT Time Seen by Provider: 08/01/25 22:40 Source: patient Mode of arrival: walk-in History of Present Illness HPI narrative: 35-year-old male presents for sore throat. He has had symptoms for a couple of days and he states all of his kids are sick. The first 1 that got sick was his child who is in school. No vomiting or diarrhea or fever. Related Data Home Medications ?Medication ?Instructions ?Recorded ?Confirmed No Known Home Medications 08/01/25 08/01/25 Allergies Allergy/AdvReac Type Severity Reaction Status Date / Time Penicillins Allergy Intermediate Anaphylaxis Verified 08/01/25 22:40 Review of Systems ROS Narrative A ten point review of systems is negative except as noted above. PFSH PFSH Social History Smoking status: Current every day smoker Little interest or pleasure in doing things: not at all Feeling down, depressed, or hopeless: not at all Exam Narrative Exam Narrative: Nurses note and vital signs reviewed and patient is not hypoxic. General: The patient appears well and in no apparent distress. Patient is resting comfortably on cart. Skin: Warm, dry, no pallor noted. There is no rash noted. Head: Normocephalic, atraumatic Eye: Normal conjunctiva, no drainage Ears, Nose, Mouth, and Throat: oral mucosa is moist. Nares patent. Minimal pharyngeal erythema. No exudate. Uvula midline Cardiovascular: Regular Rate and Rhythm Respiratory: Patient is in no distress, no accessory muscle use, lungs are clear to auscultation, no wheezing, rales or rhonchi Back: non-tender GI: Soft and nontender Musculoskeletal: The patient has no evidence of calf tenderness, no pitting edema, symmetrical pulses noted bilaterally Neurological: A&O, normal speech Psychiatric: Cooperative Constitutional Vital Signs, click to edit/add: Last Vital Signs Temp 97.9 F 08/01/25 22:42 Pulse 64 08/01/25 22:42 Resp 20 08/01/25 22:42 BP 131/91 08/01/25 22:42 Pulse Ox 97 08/01/25 22:42 O2 Del Method Room Air 08/01/25 22:42 Course Vital Signs Vital signs: Vital Signs Temperature 97.9 F 08/01/25 22:42 Pulse Rate 64 08/01/25 22:42 Respiratory Rate 20 08/01/25 22:42 Blood Pressure 131/91 08/01/25 22:42 Pulse Oximetry 97 08/01/25 22:42 Oxygen Delivery Method Room Air 08/01/25 22:42 Temperature 97.9 F 08/01/25 22:42 Pulse Rate 64 08/01/25 22:42 Respiratory Rate 20 08/01/25 22:42 Blood Pressure 131/91 08/01/25 22:42 Pulse Oximetry 97 08/01/25 22:42 Oxygen Delivery Method Room Air 08/01/25 22:42 Medical Decision Making MDM Narrative Medical decision making narrative: COVID and strep test are negative. My clinical impression is that he has a viral URI. Antibiotic not indicated. Treatment diagnosis and follow-up were discussed with the patient. Differential Diagnosis Differential Diagnosis: COVID, strep, viral URI Lab Data Lab results reviewed: Yes I reviewed the patient's lab results Labs: Lab Results 08/01/25 Range/Units 22:50 SARS-CoV-2 Ag (CV2AG) Negative (NEGATIVE) Streptococcus Screen Negative Discharge Plan Discharge Chief Complaint: Upper Respiratory Infection Clinical Impression: Viral URI Patient Disposition: Home, Self-Care Time of Disposition Decision: 23:24 Condition: Good Mode of Transportation: Private Vehicle Prescriptions / Home Meds: No Action No Known Home Medications Print Language: Turkmen Instructions: Upper Respiratory Infection (ED) Referrals: Physician,Non-Staff, MD [Primary Care Provider] - 1 week
[2025-08-01 23:16] LABS: SARS-CoV-2 Ag NEGATIVE (NEGATIVE)
== END 2025-08-01 23:36 | disposition home or self-care (01) ==
PROVIDERS: Emergency Provider Emergency Medicine
DX: J06.9 Acute upper respiratory infection, unspecified (principal); F17.200 Nicotine dependence, unspecified, uncomplicated
CPT/HCPCS: 87070; 87811; 87880; 99284